=== PATIENT | female | born 1980 | race Asian ===

== ENCOUNTER 2018-01-07 13:51 | Emergency (ER) | payer MEDICAID ==
[~2018-01-07] VITALS: Ht 152.4 cm; Wt 58.9 kg
[2018-01-07 14:29] LABS: BASOPHILS # (AUTO) 0.02 x10^3/uL (0-0.1); BASOPHILS % (AUTO) 0 % (0-1); EOSINOPHILS # (AUTO) 0.01 x10^3/uL (0-0.4); EOSINOPHILS % (AUTO) 0 % (1-7); LYMPHOCYTES % (AUTO) 9 % (22-44); MD NO; MEAN CORPUSCULAR HEMOGLOBIN 31.1 pg (27.0-34.8); MEAN CORPUSCULAR HGB CONC 33.6 g/dL (32.4-35.8); MEAN CORPUSCULAR VOLUME 92.5 fL (80-100); MEAN PLATELET VOLUME 7.1 fL (7.4-10.4); MONOCYTES # (AUTO) 0.43 x10^3/uL (0.2-0.8); MONOCYTES % (AUTO) 5 % (2-9); NEUTROPHILS # (AUTO) 8.37 x10^3/uL (1.8-6.8); NEUTROPHILS % (AUTO) 86 % (42-75); PLATELET COUNT 301 x10^3/uL (130-400); RED BLOOD COUNT 4.05 x10^6/uL (3.82-5.3); RED CELL DISTRIBUTION WIDTH 13.5 % (9.6-15.2)
[2018-01-07] MEDS ORDERED: SODIUM CHLORIDE 0.9% 1,000ML IVBOLUS ONE (14:30)
[2018-01-07] MEDS ORDERED: ONDANSETRON 2MG/ML, 2ML IVPush ONE (14:30)
[2018-01-07] MEDS ORDERED: FAMOTIDINE 20 MG/2 ML IVP ONE (14:30)
[2018-01-07 14:35] LABS: ALANINE AMINOTRANSFERASE 18 U/L (12-78); ALBUMIN 3.6 g/dL (3.4-5.0); ANION GAP 10 mmol/L (5-15); CALCIUM 8.3 mg/dL (8.5-10.1); CHLORIDE 106 mmol/L (98-107)
[2018-01-07 14:38] LABS: ALKALINE PHOSPHATASE 53 U/L (45-117); BILIRUBIN,TOTAL 1.2 mg/dL (0.2-1.0); CREATININE 0.67 mg/dL (0.55-1.02); TOTAL PROTEIN 7.6 g/dL (6.4-8.2)
[2018-01-07 15:38] LABS: CULTURE INDICATED? YES; MICROSCOPIC INDICATED
[2018-01-07] MEDS ORDERED: KETOROLAC 30 MG/1 ML IM ONE (16:00)
[2018-01-07] MEDS ORDERED: KETOROLAC 30 MG/1 ML ONE (16:04)
[2018-01-07] MEDS ORDERED: FAMOTIDINE 20 MG/2 ML ONE ×2 (16:04→17:13)
[2018-01-07] MEDS ORDERED: ONDANSETRON 2MG/ML, 2ML ONE (16:04)
[2018-01-07] MEDS ORDERED: DIPHENHYDRAMINE 50 MG/ML, 1ML ONE (17:13)
[2018-01-07] MEDS ORDERED: DIPHENHYDRAMINE 50 MG/ML, 1ML IVPush ONE (17:30)
[2018-01-07] MEDS ORDERED: DIPHENHYDRAMINE 25 MG CAPSULE PO ONE (17:30)
[2018-01-07] MEDS ORDERED: methylPREDNISolone SOD SUCC 125 MG/2 ML ONE (17:54)
[2018-01-07] MEDS ORDERED: EPINEPHRINE 1 MG/ML, 1ML ONE (17:54)
[2018-01-07] MEDS ORDERED: methylPREDNISolone SOD SUCC 125 MG/2 ML IVPush ONE (18:00)
[2018-01-07] MEDS ORDERED: EPINEPHRINE 1 MG/ML, 1ML SQ ONE (18:00)
[2018-01-07 18:53] VITALS: BP 125/78
== END 2018-01-07 19:34 | disposition home or self-care (01) ==
LOC: ED 17:05
DX: T78.40XA Allergy, unspecified, initial encounter (principal); T78.3XXA Angioneurotic edema, initial encounter; L50.9 Urticaria, unspecified; N83.201 Unspecified ovarian cyst, right side; F12.10 Cannabis abuse, uncomplicated; R10.32 Left lower quadrant pain; R19.7 Diarrhea, unspecified; Z87.42 Personal history of other diseases of the female genital tract; X58.XXXA Exposure to other specified factors, initial encounter
CPT/HCPCS: 36415; 76830; 80053; 81001; 81025; 83690; 85025; 87086; 96372; 96374; 96375; 99285; J0171; J1200; J1885; J2930